=== PATIENT | male | born 1955 | race Caucasian/White ===

== ENCOUNTER → 2023-03-15 09:57 | Outpatient (BNVA) | payer MEDICARE, SELFPAY | PROVIDERS: PCP Physician Assistant Medical; Referring Provider Physician Assistant Medical; Visit Provider Physician Assistant Surgical | DX: J44.9 Chronic obstructive pulmonary disease, unspecified (principal); I27.20 Pulmonary hypertension, unspecified; F17.210 Nicotine dependence, cigarettes, uncomplicated | CPT/HCPCS: 94618; 99205 ==

== ENCOUNTER 2023-04-26 15:15 | Outpatient (CLI) | payer MEDICARE, SELFPAY ==
--- NOTE | 2023-04-27 13:25 | W.NOCTURNAL ---
Date of service: 04/11/23 Time of Service: 22:33 Nocturnal Oximetry Note: Overnight Oximetry Amount of time analyzed: 10 hours, 19 minutes on 2LPM Number of minutes under 88%: 11.4 JESS: 1.5 Appearance of oxygen saturation pattern: gradual increases and decreases consistent with cardiopulmonary disease Recommendation: can consider increasing nocturnal O2 and repeating study Elizabeth Amor MD Pulmonary & Critical Care Medicine
== END 2023-04-26 15:16 | disposition home or self-care (01) ==
LOC: RT 15:17
PROVIDERS: PCP Physician Assistant Medical; Visit Provider Physician Assistant Surgical
DX: J44.9 Chronic obstructive pulmonary disease, unspecified (principal)
CPT/HCPCS: 94762

== ENCOUNTER → 2023-06-14 13:16 | Outpatient (BNVA) | payer MEDICARE, SELFPAY | PROVIDERS: PCP Physician Assistant Medical; Referring Provider Physician Assistant Medical; Visit Provider Student in an Organized Health Care Education/Training Program | DX: I27.20 Pulmonary hypertension, unspecified (principal) | CPT/HCPCS: 99214 ==

== ENCOUNTER → 2023-10-29 10:40 | Outpatient (BNVA) | payer MEDICARE, SELFPAY | PROVIDERS: PCP Physician Assistant Medical; Referring Provider Physician Assistant Medical; Visit Provider Internal Medicine Critical Care Medicine | DX: I27.20 Pulmonary hypertension, unspecified (principal) | CPT/HCPCS: 99213 ==

== ENCOUNTER → 2024-03-27 08:30 | Outpatient (BNVA) | payer MEDICARE, SELFPAY | PROVIDERS: PCP Physician Assistant Medical; Referring Provider Physician Assistant Medical; Visit Provider Physician Assistant Surgical | DX: R06.00 Dyspnea, unspecified (principal); I27.20 Pulmonary hypertension, unspecified | CPT/HCPCS: 94618; 99214 ==

== ENCOUNTER → 2024-04-29 10:14 | Outpatient (BNVA) | payer MEDICARE, SELFPAY | PROVIDERS: PCP Physician Assistant Medical; Referring Provider Physician Assistant Medical; Visit Provider Physician Assistant Surgical ==

== ENCOUNTER → 2024-06-19 09:03 | Outpatient (BNVA) | payer MEDICARE, SELFPAY | PROVIDERS: PCP Physician Assistant Medical; Referring Provider Physician Assistant Medical; Visit Provider Physician Assistant Surgical | DX: J44.9 Chronic obstructive pulmonary disease, unspecified (principal); I27.20 Pulmonary hypertension, unspecified; J96.11 Chronic respiratory failure with hypoxia; J31.0 Chronic rhinitis | CPT/HCPCS: 99214 ==

== ENCOUNTER → 2024-12-23 10:49 | Outpatient (BNVA) | payer MEDICARE, SELFPAY | PROVIDERS: PCP Physician Assistant Medical; Referring Provider Physician Assistant Medical; Visit Provider Physician Assistant Surgical | DX: I27.20 Pulmonary hypertension, unspecified (principal); J96.11 Chronic respiratory failure with hypoxia; J31.0 Chronic rhinitis; J44.9 Chronic obstructive pulmonary disease, unspecified | CPT/HCPCS: 99214 ==